=== PATIENT | male | born 1980 | race Caucasian/White ===

== ENCOUNTER 2016-10-28 22:41 | Emergency (ER) | END 2016-10-29 15:10 | disposition home or self-care (01) | DX: T15.01XA Foreign body in cornea, right eye, initial encounter (principal); X58.XXXA Exposure to other specified factors, initial encounter; Y92.89 Other specified places as the place of occurrence of the external cause; Z23 Encounter for immunization | CPT/HCPCS: 90471; 90715; Z7502; Z7610 ==

== ENCOUNTER 2017-12-18 15:53 | Emergency (ER) | END 2017-12-18 18:20 | disposition left against medical advice (07) ==